=== PATIENT | female | born 1995 | race Caucasian/White ===

== ENCOUNTER 2017-07-21 21:11 | Emergency (ER) | payer BC, OTHER ==
[2017-07-21 21:16] VITALS: BP 128/67; PULSE 113; RESP 18; TEMP 98.8; O2SAT 96
[2017-07-21] MEDS ORDERED: LORazepam 1 MG TAB PO ONE (21:35)
--- NOTE | 2017-07-21 21:40 | EDPHY ---
H & P Stated Complaint: NAUSEA DUE TO ABX TOOK ONCE TODAY HPI/ROS: CHIEF COMPLAINT: Possible reaction to antibiotics HISTORY OF PRESENT ILLNESS: This patient is a 22 year old female complaining of a possible reaction to antibiotics with symptoms including nausea and anxiety onset around 12:30 this afternoon, 9 hours ago. She began a course of Flagyl (7 day, BID) this morning at 10:30 to treat bacterial vaginosis. She states she drank more alcohol than usual last night, and woke feeling hungover. She took her antibiotic and went to work, but began to feel "out of it" and developed difficulty concentrating, shakiness, nausea, and a cramping sensation in her stomach. She denies vomiting. She endorses family history of anxiety and states she feels quite anxious and has in the past, but has not pursued diagnosis or treatment. REVIEW OF SYSTEMS: A ten point review of systems was performed and is negative with the exception of the items mentioned in the HPI. Past medical history: Denies Past surgical history: Conesus teeth Family history: Anxiety Social history: Occasional tobacco use. Social alcohol use. [employer] student. General Appearance: Alert. Vital signs reviewed. Blood pressure 128/67, heart rate 113 at triage. Eyes: Pupils equal and round, no conjunctival injection, no discharge. Anicteric. ENT, Mouth: Mucous membranes are moist, no oropharyngeal erythema or edema. Neck: No lymphadenopathy, supple. Respiratory: Lungs are clear to auscultation; no wheezes, rales, or rhonchi. Cardiovascular: Regular rate and rhythm; no murmur, rub, or gallop. Not tachycardic at the time of my exam. Gastrointestinal: Abdomen is soft and nontender, no masses or organomegaly, bowel sounds normal. Skin: Warm and dry, no rashes on exposed skin, normal color. Back: Nontender to palpation over the thoracolumbar spine. No CVAT. Extremities: No lower extremity edema, no calf tenderness or swelling. Neurological: Alert and oriented. Moving all four extremities easily and equally. Psychiatric: Normal affect. - Personal History LMP (Females 10-55): Extended Cycle BCP/Inj Current Tetanus/Diphtheria Vaccine: Yes - Medical/Surgical History Hx Asthma: No Hx Chronic Respiratory Disease: No Hx Diabetes: No Hx Cardiac Disease: No Hx Renal Disease: No Hx Cirrhosis: No Hx Alcoholism: No Hx HIV/AIDS: No Hx Splenectomy or Spleen Trauma: No - Social History Smoking Status: Light smoker Constitutional: Initial Vital Signs Temperature (C) 37.1 C 07/21/17 21:14 Heart Rate 113 H 07/21/17 21:14 Respiratory Rate 18 07/21/17 21:14 Blood Pressure 128/67 H 07/21/17 21:14 O2 Sat (%) 96 07/21/17 21:14 O2 Delivery Mode Room Air Allergies/Adverse Reactions: No Known Allergies Allergy (Unverified 07/21/17 21:16) Home Medications: Medication Instructions Recorded Metronidazole 07/21/17 Ondansetron Odt [Zofran Odt 4 mg 4 mg PO Q4 PRN #10 tab 07/21/17 (RX)] Medical Decision Making ED Course/Re-evaluation: 22 year old female presents with nausea and anxiety secondary to beginning a course of Flagyl this morning. It is unclear to me whether this is a reaction to the Flagyl or whether it is reaction to her heavy alcohol consumption last night, likely a combination of both. I do not feel that additional intervention is needed at this time. She is given Zofran and will be discharged with a prescription for Zofran. She does not appear to be having an anxiety attack or other problem at the time of my evaluation. She does not describe regular heavy alcohol use and is not interested in alcohol cessation. Plan to discharge home in good condition with prescription for Zofran. Follow up and return precautions discussed. The patient is comfortable with this plan. - Data Points Medications Given: Discontinued Medications Lorazepam (Ativan) 1 mg PO EDNOW ONE Stop: 07/21/17 21:36 Last Admin: 07/21/17 21:40 Dose: 1 mg Ondansetron HCl (Zofran Odt 4 Mg Prepack#2) 1 btl TAKEHOME EDNOW ONE Stop: 07/21/17 21:59 Last Admin: 07/21/17 22:05 Dose: 1 btl Departure - Departure Disposition: Home, Routine, Self-Care Clinical Impression: Anxiety Condition: Good Instructions: Metronidazole (By mouth), Anxiety (ED) Additional Instructions: 1. Take Zofran as prescribed as needed for nausea. 2. Continue to take your Flagyl as prescribed. Avoid alcohol while you are taking this medication. If you continue to have difficulty, call the prescribing physician to discuss other options. 3. Stay well hydrated. 4. Return to the emergency department for uncontrollable vomiting or diarrhea, fever, chills, or other worsening of condition. 5. Follow up with your primary care provider next week for continued evaluation of your symptoms. You may also want to discuss your anxiety with your primary care provider. Referrals: Theresa Gongora MD [Medical Doctor] - As per Instructions [facility] [Clinic] - As per Instructions Prescriptions: Ondansetron Odt [Zofran Odt 4 mg (RX)] 4 mg PO Q4 PRN #10 tab PRN Reason: nausea Report Scribed for: Lashonda Solis Report Scribed by: Prachi Terrazas Date of Report: 07/21/17 Physician Review and Approval Statement: 07/21/17 21:40 Portions of this note were transcribed by the diagnostic medical sonographer. I, Dr. Lashonda Solis, personally performed the history, physical exam, and medical decision- making; and confirmed the accuracy of the information in the transcribed note.
[2017-07-21] MEDS ORDERED: ONDANSETRON 4MG PREPACK#2 BTL TAKEHOME ONE (21:58)
== END 2017-07-21 22:16 | disposition home or self-care (01) ==
DX: F41.9 Anxiety disorder, unspecified (principal); F17.200 Nicotine dependence, unspecified, uncomplicated

== ENCOUNTER 2017-11-28 12:56 | Emergency (ER) | payer BC ==
[2017-11-28 13:02] VITALS: BP 116/84; PULSE 94; RESP 17; TEMP 98.4; O2SAT 97
--- NOTE | 2017-11-28 13:28 | EDPHY ---
HPI/HX/ROS/PE/MDM Narrative: CHIEF COMPLAINT: Left ankle injury HPI: The patient is a 22-year-old female with no significant past medical history. Last night a table fell over and struck her on the medial side of the left leg/ankle. She complains of severe pain at that site as well as inability to walk secondary to pain. She denies other injury. REVIEW OF SYSTEMS: Aside from elements discussed in the HPI, a comprehensive 10-point review of systems was reviewed and is negative. PMH: None significant. SOCIAL HISTORY: Denies alcohol or drug abuse. PHYSICAL EXAM: General:Patient is alert, in no acute distress. Skin: Normal color. No rash. Warm and dry. Extremities: Left lower extremity: Abrasion is noted to the distal left leg. There is tenderness, swelling to the medial and lateral malleolus. No abnormality noted on foot. Brisk capillary refill in all digits. Neuro: Oriented x3. Normal motor function. Normal sensory function. ED Course: XR reveals likely bimalleolar ankle fracture. Patient placed in 3-way splint and given crutches as well as orthopedic referral. No signs of neurovascular compromise. - Data Points Imaging: I viewed and interpreted images myself General Time Seen by Provider: 11/28/17 13:16 Initial Vital Signs: Initial Vital Signs Temperature (C) 36.9 C 11/28/17 12:59 Heart Rate 94 11/28/17 12:59 Respiratory Rate 17 11/28/17 12:59 Blood Pressure 116/84 H 11/28/17 12:59 O2 Sat (%) 97 11/28/17 12:59 O2 Delivery Mode Room Air Allergies/Adverse Reactions: No Known Allergies Allergy (Verified 11/28/17 12:58) Home Medications: Medication Instructions Recorded Hydrocodone/APAP 5/325 [[place] 1 - 2 tab PO Q4H PRN #20 tab 11/28/17 5/325 (RX)] Nexplanon 11/28/17 Pen Vk 250mg (*) 11/28/17 Departure - Departure Disposition: Home, Routine, Self-Care Clinical Impression: Bilateral malleolar fractures Condition: Good Instructions: Ankle Fracture (ED) Additional Instructions: Rest, ice, elevation. Take ibuprofen as needed for pain. Take [place] as prescribed as needed for severe pain. Follow up with an orthopedic surgeon within one week. Wear splint at all times until reevaluation. No weight-bearing. Return to the emergency department for worsening pain, swelling, numbness, weakness or other concerns. Referrals: Kathleen Jimenez MD [Medical Doctor] - As per Instructions Prescriptions: Hydrocodone/APAP 5/325 [[place] 5/325 (RX)] 1 - 2 tab PO Q4H PRN #20 tab PRN Reason: Pain, Moderate
== END 2017-11-28 14:20 | disposition home or self-care (01) ==
DX: S82.845A Nondisplaced bimalleolar fracture of left lower leg, initial encounter for closed fracture (principal); W20.8XXA Other cause of strike by thrown, projected or falling object, initial encounter